=== PATIENT | male | born 1945 | race African-American/Black ===

== ENCOUNTER → 2017-01-01 | Outpatient (CLI) | payer MEDICARE | END | disposition home or self-care (01) | LOC: PCVCCLINIC 16:26 | PROVIDERS: ATTEND Internal Medicine Cardiovascular Disease | DX: I49.3 Ventricular premature depolarization (principal); I10 Essential (primary) hypertension; I49.1 Atrial premature depolarization; E78.00 Pure hypercholesterolemia, unspecified; E11.9 Type 2 diabetes mellitus without complications; Z90.49 Acquired absence of other specified parts of digestive tract; Z90.79 Acquired absence of other genital organ(s); Z79.82 Long term (current) use of aspirin; Z87.891 Personal history of nicotine dependence; Z79.84 Long term (current) use of oral hypoglycemic drugs | CPT/HCPCS: 80061; 93005; G0463 ==

== ENCOUNTER → 2017-01-10 | Outpatient (CLI) | payer MEDICARE ==
[~2017-01-10] MED LIST: REGADENOSON 0.4 MG/5 ML DISP.SYRIN. IV ONE
--- NOTE | 2017-01-10 15:29 | PCVCIMAG ---
APPROVED REPORT Study performed: 01/10/2017 11:35:50 EXAM: Comprehensive 2D, Doppler, and color-flow Echocardiogram Patient Location: Echo lab Status: routine BSA: 1.90 HR: 68 bpmBP: 140/85 mmHg Rhythm: NSR Other Information Study Quality: Good Risk Factors: Cardiac Risk Factors: HTN, DM, Hyperlipidemia, FHX of CAD Indications Diabetes Hypertension/HDD PVC's. 2D Dimensions IVSd: 14.55 (7-11mm) LVDd: 40.15 mm PWd: 11.37 (7-11mm)Ascending Ao: 41.27 (22-36mm) LVDs: 32.14 (25-40mm) Left Atrium: 30.53 (27-40mm) Aortic Root: 32.08 mm LV Single Plane 4CH: 40.67 % LV Single Plane 2CH: 69.25 %Alston's LVEF: 54.96 % Biplane EF: 59.0 % Volumes Left Atrial Volume (Systole) Single Plane 4CH: 25.62 mLSingle Plane 2CH: 20.41 mL LA ESV Index: 13.00 mL/m2 Aortic Valve AoV Peak Harely.: 1.90 m/s AO Peak Gr.: 17.44 mmHg AI Vmax: 4.82 m/s AI Dewitt: 3.33 m/s2 AI PHT: 419.28 ms Pulmonary Valve PV Peak Gr.: 2.27 mmHg Pulmonary Vein P Vein S: 0.62 m/sP Vein A: 0.44 m/s P Vein D: 0.37 m/sP Vein A Dur.: 93.4 msec P Vein S/D Ratio: 1.68 Tricuspid Valve TR Peak Harley.: 2.64 m/s TR Peak Gr.: 27.77 mmHg Left Ventricle The left ventricle is normal size. There is normal LV segmental wall motion. Mild concentric left ventricular hypertrophy. Left ventricular systolic function is normal. The left ventricular ejection fraction is within the normal range. LVEF is 55%. The left ventricular diastolic function is normal. Right Ventricle The right ventricle is normal size. The right ventricular systolic function is normal. Atria The left atrium size is normal. The right atrium size is normal. Aortic Valve The aortic valve is normal in structure. Mild aortic regurgitation. There is no aortic valvular stenosis. Mitral Valve The mitral valve is normal in structure. Trace mitral regurgitation. No evidence of mitral valve stenosis. Tricuspid Valve The tricuspid valve is normal in structure. Trace tricuspid regurgitation. Pulmonary artery pressure is 35mmhg. Pulmonic Valve The pulmonary valve is normal in structure. Trace pulmonic regurgitation. Great Vessels The aortic root is normal in size. IVC is normal in size and collapses with >50% inspiration Pericardium There is no pericardial effusion. <Conclusion> The left ventricle is normal size. Mild concentric left ventricular hypertrophy. LVEF is 55%. The left ventricular diastolic function is normal. The right ventricle is normal size. The left atrium size is normal. The right atrium size is normal. Mild aortic regurgitation. Trace mitral regurgitation. Trace tricuspid regurgitation. Pulmonary artery pressure is 35mmhg. There is no pericardial effusion.
--- NOTE | 2017-01-10 17:44 | PCVCIMAG ---
APPROVED REPORT Exam: Nuclear Stress Test Indication: Abnormal EKG, Dyspnea, Fatigue Patient Location: Out-Patient Stress Nurse: Nyla Colon RN, MAUREEN Bravo Tech:Marlene SantiagoJESS oseguera Ht: 5 ft 9 in Wt: 172 lbs BSA: 1.94 m2 HR: 68 bpm BP: 182/96 mmHg BMI: 25.3 Rhythm: NSR WITH PVC'S Medical History Medical History: Hyperlipidemia, HTN, Diabetes, Age, Former Smoker Medications: Norvasc, Coreg, Cozaar, Pravastatin Allergies: No known drug allergies Pretest Chest Pain Characteristics: No chest pain Exercise History: Physically active Physical Disabilities: Knees Meds Held (24 hrs): Coreg NM EXAM: Myocardial Perfusion REST/STRESS Imaging Protocol: Rest Tc-99m/Stress Tc-99m 1 day Resting Data Rest SPECT myocardial perfusion imaging was performed in supine position 45 minutes following the intravenous injection of 10.8 mCi of Tc-99m Sestamibi. Time of rest injection: 1215 Date: 01/10/2017 Administration Route: IV Administration Site: Right AC Pharmacologic Stress Pharmacologic stress test was performed by injecting Regadenoson 0.4 mg IV push followed by the intravenous injection of 31.5 mCi of Tc-99m Sestamibi. Time of stress injection: 1330 Date: 01/10/2017 Administration Route: IV Administration Site: Right AC Gated Stress SPECT was performed 45 minutes after stress injection. The images were gated to evaluate regional wall motion and calculate left ventricular ejection fraction. Study Data Post stress, the left ventricular ejection was 47%.. SSS: 0 SRS: 1 SDS: 0 TID = 0.97. Perfusion No evidence of stress induced ischemia or prior myocardial infarction. Wall Motion Normal left ventricular size and function with no regional wall motion abnormalities. Nuclear Conclusion No evidence of stress induced ischemia or prior myocardial infarction. Normal left ventricular size and function with no regional wall motion abnormalities. Post stress, the left ventricular ejection was 47%.. No prior study available for comparison. Interpreted by: Alphonse Ibarra MD Electronically Approved: 01/10/2017 17:22:46 Stress Test Details Stress Test: Pharmacologic stress was paired with low level exercise. Reason for pharmacologic stress test: physical limitation. HR Resting HR: 68 bpmMax Heart Rate (APMHR): 147 bpm Max HR Achieved: 103 bpmTarget HR (85% APMHR): 124 bpm % of APMHR: 70 Recovery HR: 77 bpm BP Resting BP: 182/96 mmHg Max BP: 132/86 mmHg ECG Resting ECG: Sinus Rhythm Stress ECG: Sinus Rhythm Arrhythmia: PVCs Recovery ECG: Sinus Rhythm Clinical Reason for Termination: Completed protocol Stress Symptoms: Chest pain, Dyspnea Exercise duration: 4 min 00 sec Exercise capacity: 1.6 METs Symptoms resolved during recovery. Stress ECG Conclusion ECG: Non-ischemic Clinical: Non-ischemic <Conclusion> ECG: Non-ischemic Clinical: Non-ischemic
== END | disposition home or self-care (01) ==
LOC: PCVCIMAG 10:53
PROVIDERS: ATTEND Nuclear Medicine Nuclear Cardiology
DX: I08.3 Combined rheumatic disorders of mitral, aortic and tricuspid valves (principal); E11.9 Type 2 diabetes mellitus without complications; I10 Essential (primary) hypertension; I49.3 Ventricular premature depolarization; R94.31 Abnormal electrocardiogram [ECG] [EKG]; E78.00 Pure hypercholesterolemia, unspecified; K52.9 Noninfective gastroenteritis and colitis, unspecified; Z87.891 Personal history of nicotine dependence; Z82.49 Family history of ischemic heart disease and other diseases of the circulatory system
CPT/HCPCS: 78452; 93017; 93306; A9500; J2785

== ENCOUNTER → 2018-11-07 | Outpatient (CLI) | payer MEDICARE | END | disposition home or self-care (01) | LOC: PCVCCLINIC 13:10 | PROVIDERS: ATTEND Internal Medicine Cardiovascular Disease | DX: I25.10 Atherosclerotic heart disease of native coronary artery without angina pectoris (principal); I10 Essential (primary) hypertension; E11.9 Type 2 diabetes mellitus without complications; E78.00 Pure hypercholesterolemia, unspecified; R07.89 Other chest pain; R06.02 Shortness of breath; E78.5 Hyperlipidemia, unspecified; Z87.891 Personal history of nicotine dependence; Z79.82 Long term (current) use of aspirin; Z79.899 Other long term (current) drug therapy | CPT/HCPCS: 36415; 80061; 93005; G0463 ==

== ENCOUNTER → 2018-11-13 | Outpatient (CLI) | payer MEDICARE ==
--- NOTE | 2018-11-13 15:15 | PCVCIMAG ---
APPROVED REPORT Study performed: 11/13/2018 14:08:21 Exam: Stress Echocardiogram Indication: Chest pain , Palpitations Patient Location: Echo lab Status: routine Ht: 5 ft 10 in HR: 62 bpm BP: 140/90 mmHg Rhythm: NSR Medical History Medical History: Hyperlipidemia, HTN Procedure The patient underwent an Exercise Stress Test using the [place] Protocol. Blood pressure, heart rate, and EKG were monitored. An Echocardiogram was performed by program technician in four stages in quad fashion. At peak stress, four selected images were obtained and placed side by side with resting images for comparison. Stress Test Details Stress Test: Exercise stress testing was performed using a [place] protocol. HR Resting HR: 62 bpmMax Heart Rate (APMHR): 145 bpm Max HR Achieved: 116 bpmTarget HR (85% APMHR): 123 bpm % of APMHR: 80 Recovery HR: 75 bpm HR response to stress: Normal HR response to stress BP Resting BP: 140/90 mmHg Max BP: 150/80 mmHg Recovery BP: 140/88 mmHg BP response to stress: Normal blood pressure response to stress. ECG Resting ECG: Sinus Rhythm Stress ECG: Sinus Rhythm Recovery ECG: Sinus Rhythm Recovery Arrhythmia: PVC's Clinical Reason for Termination: Maximal effort, Leg pain Stress Symptoms: Leg Fatigue Exercise duration: 7 min 09 sec Highest Stage Achieved: Stage 2: 2.5 mph at 12% grade. Exercise capacity: 10.10 METs Overall Exercise Capacity for Age: Poor Stress ECG Conclusion Patient was unable to reach target heart rate due to leg fatigue. Pre-Stress Echo The resting Echocardiogram showed normal left ventricular contractility with an estimated Ejection Fraction of about 55-60%. Normal wall motion in all segments on baseline images. Post-Stress Echo The stress Echocardiogram showed normal left ventricular contractility with an estimated Ejection Fraction of about 60-65%. Normal augmentation of wall motion in all segments on post stress images. Conclusion Clinical Response: Non-ischemic Exercise Capacity: Below Average Stress ECG Response: Non-ischemic Stress Echo Images: Non-ischemic The left ventricle is normal in size and wall thickness in both the rest and stress images. <Conclusion> The left ventricle is normal in size and wall thickness in both the rest and stress images.
== END | disposition home or self-care (01) ==
LOC: PCVCIMAG 13:48
PROVIDERS: ATTEND Internal Medicine Cardiovascular Disease
DX: R07.9 Chest pain, unspecified (principal); R00.2 Palpitations; I11.0 Hypertensive heart disease with heart failure; E78.5 Hyperlipidemia, unspecified; I50.9 Heart failure, unspecified; Z87.891 Personal history of nicotine dependence
CPT/HCPCS: 93325; 93351